=== PATIENT | female | born 1990 | race Caucasian/White ===

== ENCOUNTER 2017-06-17 22:48 | Inpatient (IN) | payer BC, OTHER ==
[~2017-06-17] VITALS: Ht 177.8 cm; Wt 72.6 kg
[2017-06-18] MEDS ORDERED: MAG HYDROX/AL HYDROX/SIMETH 30 ML LIQUID UDC PO PRN (00:15)
[2017-06-18] MEDS ORDERED: ONDANSETRON 4 MG/2 ML VIAL IM PRN (00:15)
[2017-06-18] MEDS ORDERED: CLONIDINE HCL 0.1 MG TABLET PO PRN (00:15)
[2017-06-18] MEDS ORDERED: DICYCLOMINE HCL 20 MG TABLET PO PRN (00:15)
[2017-06-18] MEDS ORDERED: IBUPROFEN 400 MG TABLET PO PRN (00:15)
[2017-06-18] MEDS ORDERED: LORAZEPAM 1 MG TABLET PO PRN ×2 (00:15)
[2017-06-18] MEDS ORDERED: LOPERAMIDE HCL 2 MG CAPSULE PO PRN ×2 (00:15)
[2017-06-18] MEDS ORDERED: ACETAMINOPHEN 325 MG TABLET PO PRN (00:15)
[2017-06-18] MEDS ORDERED: MIRALAX 17 GM POWD.PACK PO PRN (00:15)
[2017-06-18] MEDS ORDERED: LORAZEPAM 2 MG/1 ML VIAL IM PRN (00:15)
[2017-06-18] MEDS ORDERED: MAGNESIUM HYDROXIDE 30 ML LIQUID UDC PO PRN (00:15)
[2017-06-18] MEDS ORDERED: THIAMINE HCL 200 MG/2 ML VIAL IM ONE (00:15)
--- NOTE | 2017-06-18 00:15 | NUR ---
Intake Assessment Assessment done at intake office. Patient is alert & oriented x4. Pt is ambulatory with a steady gait. Speech is clear and audible. No s/s of distress noted. Vitals noted B/P 130/89, AL 96, RR 18, Temp 96.5, O2Sat 96%. Pt is here for Alcohol dependence. No seizure history noted. Pt reported allergies to Penicillins. Pt did not bring any home medications. Explained to pt unit protocols. Pt verbalized understanding.
[2017-06-18 00:20] VITALS: BP 130/89
--- NOTE | 2017-06-18 00:26 | NUR ---
ADMISSION NOTE: Patient is a 26 y.o female admitted at [facility] at approximately 0026 am of 06/18/17 for medically supervised withdrawal from ETOH. Body search done and skin check performed, no contraband found. Bruise noted on her left thigh and left leg. Per pt, she bumped into a coffee table at work. Pt is 5'10" tall and weighs 160 lbs in a standing scale. Pt is cooperative during assessment. Patient is oriented to floor unit and room. Patient follows a regular diet at home with allergies to Penicillin. Pt wishes to be full Code. Patient is alert & oriented x4, ambulatory with a steady gait. Patient does not look intoxicated. Speech is clear and audible. Patient is slightly anxious but cooperative during interview. No shortness of breath noted. Respiration even & unlabored. Abdomen soft & non-distended. Bowel sounds active in all four quadrants. Slight nausea noted. No pain/discomfort noted at this time. Bilateral hand tremors noted. Vitals upon admission: B/P 130/89, MA 96, Temp 96.4, RR 16, O2Sat 96%. Patient reported surgical hx of appendectomy in 2013 . Pt denies any suicide attempt. Pt currently denies SI/HI. Pt was able to provide urine sample for drug screen upon admission and is voiding clear yellow urine with no problems. Substance use: 1. ETOH- Pt has been drinking occasionally since 16 years and was not dependent until 6 months ago. Pt reports that she drinks 1/2 pint of Vodka daily for the past 3 months. Pt Last drink was 1/4 pint of vodka @ 3pm prior to admission. Patient reports that this is her first time in treatment. Patient denies being hospitalized in the last 30 days. Patient reports her longest period of sobriety was for 2 weeks, 3 months ago. Patient reports symptoms when he does not use as tremors, headache, visual hallucinations & nausea. Patient smokes a vaporizer and occasionally smokes a cigarettes. Patient refused flu & pneumonia vaccines, educated patient risk & benefits but still refused. Patient does not have a PCP. Urine drug screen came back negative. Alcohol level is 0.39. Fall & Seizure precautions are in place. All needs attended & met. Safety precautions are in place. Bed locked in lowest position. Both side rails padded & up. Call light within pt's reach. Informed Dr. Yeager of pt's admission. Awaiting for orders. Will continue to monitor patient.
[2017-06-18 01:31] LABS: *URINE HCG, QUAL NEGATIVE (NEGATIVE)
[2017-06-18 01:35] LABS: BASOPHILS # (AUTO) 0.1 K/uL (0.0-8.0); BASOPHILS % (AUTO) 3.3 % (0.0-2.0); EOSINOPHILS % (AUTO) 0.6 % (0.0-7.0); HEMATOCRIT 42.9 % (31.2-41.9); HEMOGLOBIN 14.9 g/dL (10.9-14.3); LYMPHOCYTES % (AUTO) 27.1 % (20.5-51.5); MEAN CORPUSCULAR HEMOGLOBIN 36.7 uug (24.7-32.8); MEAN CORPUSCULAR HGB CONC 35 g/dL (32.3-35.6); MEAN CORPUSCULAR VOLUME 105.5 fL (75.5-95.3); MONOCYTES # (AUTO) 0.5 K/uL (2.0-10.0); MONOCYTES % (AUTO) 14.1 % (0.0-11.0); NEUTROPHILS % (AUTO) 54.9 % (38.5-71.5); PLATELET COUNT (AUTO) 197 K/uL (179-408); RED BLOOD CELL COUNT(AUTO) 4.07 MIL/uL (3.63-4.92); WHITE BLOOD COUNT (AUTO) 3.6 K/uL (3.8-11.8)
[2017-06-18 01:45] LABS: *AMPHETAMINE, URINE NEGATIVE (NEGATIVE); *BARBITURATE, URINE NEGATIVE (NEGATIVE); *CANNABINOID, URINE NEGATIVE (NEGATIVE); *COCCAINE, URINE NEGATIVE (NEGATIVE); *OPIATE, URINE NEGATIVE (NEGATIVE); *PHENCYCLIDINE SCREEN,URINE NEGATIVE (NEGATIVE)
[2017-06-18] MEDS ORDERED: LORAZEPAM 1 MG TABLET ONE (01:45)
[2017-06-18] MEDS ORDERED: THIAMINE HCL 200 MG/2 ML VIAL ONE (01:46)
--- NOTE | 2017-06-18 01:51 | NUR ---
PRN Ativan Patient complained of nausea. Pt noted with bilateral hand tremors, slight sweating & anxiety. Vitals WNL. CIWA 5 at this time. PRN Ativan 1mg PO administered as ordered. Will monitor for effectiveness of medication.
[2017-06-18 01:56] LABS: BILIRUBIN,TOTAL 0.6 mg/dL (0.2-1.0); CREATININE 0.7 mg/dL (0.6-1.3); MAGNESIUM 1.8 mg/dL (1.8-2.4); POTASSIUM 3.4 mmol/L (3.5-5.1); TOTAL PROTEIN, SERUM 8.2 g/dL (6.4-8.2)
--- NOTE | 2017-06-18 02:51 | NUR ---
PRN Reassessment Patient asleep in bed and appears comfortable. No s/s of distress noted at this time. Unable to assess CIWA. WIll continue to monitor patient.
[2017-06-18 04:00] VITALS: BP 108/64
--- NOTE | 2017-06-18 07:08 | NUR ---
End of Shift Note: Patient is a 26 y.o female admitted today at approximately 0026am of 06/18/17 for medically supervised withdrawal from Alcohol. Patient hast Surgical Hx of Appendectomy in 2013 & MHx of Long QT. No seizure history noted. Patient is on a regular diet with no known food and drug allergies. Full Code status noted. Patient is alert & oriented x4. Patient is ambulatory with a steady gait. Patient remained stable and vitals remains WNL. Pt has no taper yet. Pt last Ciwa is 5. Pt presented with nausea, tremors & anxiety during my shift. Pt received PRN Ativan 1mg PO as ordered during my shift and was effective. Pt is asleep at this time with no s/s of distress noted. Pt slept for a total of 2 hours. Fluid intake: 1255 ml. Voided 1z with no bowel movement. All needs attended & met. Safety measures in place. Will continue to monitor patient.
--- NOTE | 2017-06-18 07:30 | NUR ---
START OF SHIFT Pt 26 y/o female admitted for etoh dependence. Pt received in room on bed with eyes closed resting, but easily arousable to name. Pt alert and oriented to name, place, and time. Perrla. Skin warm and slightly moist to touch. Respirations even and unlabored. Pt with bilateral hand tremors noted. Pt states feels anxious this morning and with slight nausea noted. It was reported that pt slept for 2 hours last night. Bed on lowest position with side rails x2 up for safety. Call light within reach. No distress noted at this time.
[2017-06-18 08:00] VITALS: BP 148/72
[2017-06-18] MEDS: THIAMINE HCL 100 MG TABLET PO SCH (08:28)
[2017-06-18] MEDS: ONDANSETRON ODT 4 MG TAB.RAPDIS SL PRN ×2 (08:28→20:25)
[2017-06-18] MEDS: MULTIVITAMINS,THERAPEUTIC TABLET PO SCH (08:28)
[2017-06-18] MEDS: LORAZEPAM 1 MG TABLET PO SCH ×4 (08:29→20:24)
[2017-06-18] MEDS: FOLIC ACID 1 MG TABLET PO SCH (08:29)
--- NOTE | 2017-06-18 08:31 | NUR ---
PRN Pt with c/o nausea. Zofran odt prn per MD order given and tolerated well.
--- NOTE | 2017-06-18 09:31 | NUR ---
PRN EVAL Pt states does not feels nauseated at this time.
[2017-06-18] MEDS ORDERED: POTASSIUM CHLORIDE 10 MEQ CAPSULE.SA PO ONE (10:00)
[2017-06-18 12:00] VITALS: BP 131/85
--- NOTE | 2017-06-18 12:42 | NUR ---
Therapist prompted client to come to group today, client agreed to attend.
[2017-06-18] MEDS ORDERED: NICOTINE POLACRILEX 4 MG GUM-PK OF TEN BC PRN (15:00)
[2017-06-18] MEDS ORDERED: NICOTINE 14 MG/24HR PATCH TD PRN (15:00)
--- NOTE | 2017-06-18 15:29 | NUR ---
PRN Pt states vomitted x3 water. Zofran im prn per MD order given and tolerated well.
[2017-06-18 16:00] VITALS: BP 152/93
--- NOTE | 2017-06-18 16:29 | NUR ---
PRN EVAL Pt states zofran im was effective.
[2017-06-18] MEDS: hydrALAZINE HCL 50 MG TABLET PO PRN (17:30)
--- NOTE | 2017-06-18 17:31 | NUR ---
PRN Pt with qm=740/93. Hydralazine po prn per MD order given and tolerated well.
--- NOTE | 2017-06-18 18:31 | NUR ---
PRN EVAL pt with bp= 130/68
--- NOTE | 2017-06-18 18:41 | NUR ---
END OF SHIFT Pt 26 y/o female admitted for etoh dependence. Pt alert and oriented to name, place, and time. Perrla. Skin warm and moist to touch. Respirations even and unlabored. Bilateral hand tremors noted. Pt with periods of anxiety this morning. Pt also with vomit episode x3 this afternoon. Pt observed mostly isolative to room throughout the day. Pt did attend group activity today. Pt was seen by MD today. Pt medication compliant and tolerated well. No ASE noted. Bed on lowest position with side rails x2 up for safety. Call light within reach. No distress noted at this time.
--- NOTE | 2017-06-18 19:15 | NUR ---
Start of Shift Note: Patient is a 26 y.o female admitted today 06/18/17 for medically supervised withdrawal from Alcohol. Patient has PMHx of Long QT Syndrome, Anxiety, Depression, Migraine & Appendectomy. No seizure history noted. Patient is on a regular diet with no known food and drug allergies. Full Code status noted. Patient started on a 5-day Ativan taper and tolerating well. Last CIWA is 4. Pt received PRN Zofran PO & Zofran IM during day shift and was effective. Patient is alert & oriented x4. Patient is ambulatory with a steady gait. Patient remained stable and vitals remains WNL. Pt last Ciwa is 4. Pt presented with nausea, tremors, sweating & anxiety during my shift. Pt complained of mild headache. Hand tremors noted. Patient denies any hallucinations at this time. Safety measures in place. Bed locked in lowest position. Both side rails up. Call light within pt's reach. Will continue to monitor patient.
[2017-06-18 20:00] VITALS: BP 140/92
[2017-06-18] MEDS: PROPRANOLOL HCL 20 MG TABLET PO SCH (20:24)
--- NOTE | 2017-06-18 20:25 | NUR ---
PRN Motrin & Zofran Patient complains of moderate headache and nausea. No episode of vomiting noted. PRN Motrin PO and Zofran SL administered as ordered. Will continue to monitor patient.
--- NOTE | 2017-06-18 21:25 | NUR ---
PRN Reassessment Pt verbalized improved nausea and relief from headache. PRN medication effective. Will continue to monitor patient.
[2017-06-18] MEDS: diphenhydrAMINE 50 MG CAPSULE PO PRN (23:56)
--- NOTE | 2017-06-18 23:56 | NUR ---
PRN Benadryl Patient complains of unable to fall asleep. PRN Benadryl administered as ordered. Will continue to monitor patient.
[2017-06-19] VITALS: BP 130/91
[2017-06-19 04:00] VITALS: BP 126/88
[2017-06-19 06:56] LABS: BASOPHILS # (AUTO) 0.1 K/uL (0.0-8.0); BASOPHILS % (AUTO) 2.5 % (0.0-2.0); EOSINOPHILS # (AUTO) 0.1 K/uL (0.0-0.7); EOSINOPHILS % (AUTO) 2.5 % (0.0-7.0); HEMATOCRIT 41.9 % (31.2-41.9); HEMOGLOBIN 14.3 g/dL (10.9-14.3); LYMPHOCYTES # (AUTO) 0.9 K/uL (20.0-40.0); LYMPHOCYTES % (AUTO) 27.3 % (20.5-51.5); MEAN CORPUSCULAR HEMOGLOBIN 36.4 uug (24.7-32.8); MEAN CORPUSCULAR HGB CONC 34 g/dL (32.3-35.6); MEAN CORPUSCULAR VOLUME 106.6 fL (75.5-95.3); MONOCYTES # (AUTO) 0.7 K/uL (2.0-10.0); MONOCYTES % (AUTO) 22.9 % (0.0-11.0); NEUTROPHILS # (AUTO) 1.4 K/uL (1.8-8.9); NEUTROPHILS % (AUTO) 44.8 % (38.5-71.5); PLATELET COUNT (AUTO) 159 K/uL (179-408); RED BLOOD CELL COUNT(AUTO) 3.93 MIL/uL (3.63-4.92); WHITE BLOOD COUNT (AUTO) 3.1 K/uL (3.8-11.8)
[2017-06-19 07:06] LABS: CREATININE 0.7 mg/dL (0.6-1.3); MAGNESIUM 1.9 mg/dL (1.8-2.4); PHOSPHOROUS 4.1 mg/dL (2.5-4.9); POTASSIUM 4.5 mmol/L (3.5-5.1)
--- NOTE | 2017-06-19 07:11 | NUR ---
End of Shift Note: Patient is a 26 y.o female admitted today 06/18/17 for medically supervised withdrawal from Alcohol. Patient had an uneventful night. Patient continues on her Ativan taper and tolerating well. Last COWS is 4. Pt reported that taper medication is effective in controlling her withdrawal symptoms. Pt received PRN Benadryl for sleep, Motrin for pain and Zofran for nausea during my shift and was effective. Patient remained stable and vitals WNL. Pt remained compliant with medications and treatment. Patient slept for a total of 5 hours. Fluid intake: 500ml. Will continue to encourage pt to increase fluid intake. Voided 2x and 1x bowel movement noted. Will continue to monitor for BM. All needs attended & met. Safety measures in place. Will endorse pt to day shift nurse.
--- NOTE | 2017-06-19 07:30 | NUR ---
START OF SHIFT Pt 26 y/o female admitted for etoh dependence. Pt received in room on bed with eyes closed resting, but easily arousable to name. Pt alert and oriented to name, place, and time. Perrla. Skin warm and slightly moist to touch. Respirations even and unlabored. Pt with bilateral hand tremors noted. It was reported that pt slept for 3 hours last night. Bed on lowest position with side rails x2 up for safety. Call light within reach. No distress noted at this time.
[2017-06-19 08:00] VITALS: BP 122/93
[2017-06-19] MEDS ORDERED: TUBERCULIN,PURIF.PROT.DERIV. 5 TU/0.1 ML TEST ID ONE (09:00)
[2017-06-19] MEDS: THIAMINE HCL 100 MG TABLET PO SCH (09:05)
[2017-06-19] MEDS: MULTIVITAMINS,THERAPEUTIC TABLET PO SCH (09:05)
[2017-06-19] MEDS: PROPRANOLOL HCL 20 MG TABLET PO SCH ×2 (09:05→20:17)
[2017-06-19] MEDS: FOLIC ACID 1 MG TABLET PO SCH (09:05)
[2017-06-19] MEDS: LORAZEPAM 1 MG TABLET PO SCH ×3 (09:05→20:18)
[2017-06-19 09:21] LABS: EOSINOPHILS % (MANUAL) 4 % (0-8); LYMPHOCYTES % (MANUAL) 35 % (20-40); MONOCYTES % (MANUAL) 14 % (2-10); NEUTROPHILS % (MANUAL) 47 % (42-75)
--- NOTE | 2017-06-19 09:30 | NUR ---
CARDIO CONSULT Dr. High on unit to evaluate pt re: cardio consult r/t prolonged QT, with new orders for echocardiogram. Addendum: 06/19/17 at 1741 by VIRI COLLINS RN additional Dr. High also with recommendation to DC antiemetics and immodium because it could cause prolonged QT.
[2017-06-19] MEDS: hydrALAZINE HCL 50 MG TABLET PO PRN (12:17)
--- NOTE | 2017-06-19 12:19 | NUR ---
PRN Pt with jl=417/104. Hydralazine po prn per MD order given and tolerated well.
[2017-06-19 12:33] VITALS: BP 142/104
--- NOTE | 2017-06-19 13:19 | NUR ---
PRN EVAL Pt mk=876/88
[2017-06-19 14:07] LABS: HEPATITIS B SURFACE AG Negative (Negative)
[2017-06-19 16:00] VITALS: BP 124/81
--- NOTE | 2017-06-19 17:35 | NUR ---
PRN Pt states did not have a bm. Miralax oral mix solution prn per MD order given and tolerated well.
--- NOTE | 2017-06-19 18:36 | NUR ---
END OF SHIFT Pt 26 y/o female admitted for etoh dependence. Pt alert and oriented to name, place, and time. Perrla. Skin warm and moist to touch. Respirations even and unlabored. Bilateral hand tremors noted. Pt with periods of anxiety this morning. Pt observed mostly isolative to room throughout the day. Pt did attend group activity today. Pt was seen by MD today. Pt also seen by bridge club manager today. Pt medication compliant and tolerated well. No ASE noted. Bed on lowest position with side rails x2 up for safety. Call light within reach. No distress noted at this time.
--- NOTE | 2017-06-19 19:15 | NUR ---
Start of Shift Note: Patient is a 26 y.o female admitted on 06/18/17 for medically supervised withdrawal from Alcohol. Patient has PMHx of Long QT Syndrome, Anxiety, Depression, Migraine & Appendectomy. No seizure history noted. Patient is on a regular diet with no known food and drug allergies. Full Code status noted. Patient continues on a 5-day Ativan taper and tolerating well. Last CIWA is 4. Pt received PRN Hydralazine and Miralax during day shift and it was effective. Patient is alert & oriented x4. Patient is ambulatory with a steady gait. Patient remained stable and vitals remains WNL. Pt last Ciwa is 4. Pt presented with nausea, tremors, & anxiety during my shift. No complaints of pain/discomfort noted. Hand tremors noted. Patient denies any hallucinations at this time. Safety measures in place. Bed locked in lowest position. Both side rails up. Call light within pt's reach. Will continue to monitor patient.
[2017-06-19 20:00] VITALS: BP 124/82
[2017-06-19] MEDS: diphenhydrAMINE 50 MG CAPSULE PO PRN (20:18)
--- NOTE | 2017-06-19 20:18 | NUR ---
PRN Benadryl Patient complains that she is unable to fall asleep. Pt requesting for medication to help her sleep. PRN Benadryl administered as ordered. Will continue to monitor patient.
--- NOTE | 2017-06-19 22:00 | NUR ---
PRN Reassessment Patient asleep in bed and appears comfortable. No s/s of distress noted. PRN medication effective. Will continue to monitor patient.
[2017-06-20] VITALS: BP 127/85
--- NOTE | 2017-06-20 07:05 | NUR ---
End of Shift Note: Patient is a 26 y.o female admitted on 06/18/17 for medically supervised withdrawal from Alcohol. Patient had an uneventful night. Patient continues on her Ativan taper and tolerating well. Last Ciwa is 4. Pt reported that taper medication is effective in controlling her withdrawal symptoms. Pt received PRN Benadryl for sleep and was effective. Patient remained stable and vitals WNL. Pt remained compliant with medications and treatment. Patient slept for a total of 6 hours. Fluid intake: 1000ml. Will continue to encourage pt to increase fluid intake. Voided 2x and 1x bowel movement noted. All needs attended & met. Safety measures in place. Will endorse pt to day shift nurse.
--- NOTE | 2017-06-20 07:55 | NUR ---
START OF SHIFT NOTE Received report from night nurse, 26 year old female admitted for ETOH dependence. Patient has PMH of Long QT Syndrome, Anxiety, Depression, Migraine & Appendectomy. Per endorsement pt received PRN Benadryl, last CIWA was 4, slept for 6 hours. Patient presented with anxiety, agitation, chills, sweats, Tremors. Educated patient on the current plan of care for the day and medication regimen. Safety measures in place. call light kept with in reach, Will continue to monitor.
[2017-06-20 08:00] VITALS: BP 109/80
[2017-06-20] MEDS: FOLIC ACID 1 MG TABLET PO SCH (08:35)
[2017-06-20] MEDS: MULTIVITAMINS,THERAPEUTIC TABLET PO SCH (08:35)
[2017-06-20] MEDS: THIAMINE HCL 100 MG TABLET PO SCH (08:35)
[2017-06-20] MEDS: LORAZEPAM 1 MG TABLET PO SCH ×4 (08:35→21:22)
[2017-06-20] MEDS: PROPRANOLOL HCL 20 MG TABLET PO SCH ×2 (08:35→21:23)
[2017-06-20 12:00] VITALS: BP 128/91
--- NOTE | 2017-06-20 13:55 | NUR ---
Therapist prompted client about group times. Client stated she would attend all groups.
[2017-06-20 16:00] VITALS: BP 134/97
--- NOTE | 2017-06-20 19:07 | NUR ---
END OF SHIFT NOTE Patient cont with Ativan taper tolerating well. During shift patient did not receive any PRN medications. Vital signs remained WNL. Encourage Po fluids as tolerated. Last CIWA score was 4 @ 1600. Skin intact warm and dry to touch. Patient attended groups and activities. All needs attended, Safety measures in place. Patient endorsed to night nurse in stable condition.
[2017-06-20 20:00] VITALS: BP 142/94
--- NOTE | 2017-06-20 20:00 | NUR ---
Start of Shift Notes Received a 26 y/o female admitted on 06/18/2017 for etoh dependence. Px alert and oriented to name, place, and time. Perrla. Px is allergic to PCN, on regular diet and Full Code. During the rounds at 2000, px reported anxiety is on moderate. Respirations even and unlabored. Bed on lowest position with side rails x2 up for safety. Call light within reach. We'll continue to monitor.
[2017-06-21] VITALS: BP 109/60
--- NOTE | 2017-06-21 | NUR ---
CIWA deferred CIWA deferred due to the px is asleep, to assess if the px is awake per doctor's order. We'll continue to monitor.
[2017-06-21 04:00] VITALS: BP 111/63
--- NOTE | 2017-06-21 04:00 | NUR ---
CIWA deferred CIWA deferred due to the px is asleep, to assess if the px is awake per doctor's order. We'll continue to monitor.
--- NOTE | 2017-06-21 07:02 | NUR ---
End of Shift Notes 26 y/o female admitted on 06/18/2017 for etoh dependence. Px alert and oriented to name, place, and time. Perrla. Px is allergic to PCN, on regular diet and Full Code. During the shift, px reported anxiety is on moderate. Oral intake of 1 L, voided 2x, no BM. Slept 7 hours. Respirations even and unlabored. Bed on lowest position with side rails x2 up for safety. Call light within reach. We'll continue to monitor.
--- NOTE | 2017-06-21 07:43 | NUR ---
START OF SHIFT NOTE Received report from night nurse, 26 year old female admitted for ETOH dependence. Patient has PMH of Long QT Syndrome, Anxiety, Depression, Migraine & Appendectomy. Per endorsement pt was not given any PRN'S, last CIWA was 5, slept for 7 hours. Received pt alert awake oriented x4. Educated patient on the current plan of care for the day and medication regimen. Safety measures in place. call light kept with in reach, Will continue to monitor.
[2017-06-21 08:00] VITALS: BP 107/75
[2017-06-21] MEDS: MULTIVITAMINS,THERAPEUTIC TABLET PO SCH (08:29)
[2017-06-21] MEDS: THIAMINE HCL 100 MG TABLET PO SCH (08:29)
[2017-06-21] MEDS: FOLIC ACID 1 MG TABLET PO SCH (08:29)
[2017-06-21] MEDS: LORAZEPAM 1 MG TABLET PO SCH ×3 (08:30→21:07)
[2017-06-21] MEDS: PROPRANOLOL HCL 20 MG TABLET PO SCH ×2 (08:30→21:06)
[2017-06-21 12:00] VITALS: BP 139/88
--- NOTE | 2017-06-21 14:42 | NUR ---
Therapist prompted client to come into group and share with others.
[2017-06-21 16:00] VITALS: BP 101/65
--- NOTE | 2017-06-21 19:08 | NUR ---
END OF SHIFT NOTE Patient cont with Ativan taper tolerating well. During shift patient did not receive any PRN medications. Vital signs remained WNL. Encourage Po fluids as tolerated. Last CIWA score was 3 @ 1600. Skin intact warm and dry to touch. Patient attended groups and activities. All needs attended, Safety measures in place. Patient endorsed to night nurse in stable condition.
[2017-06-21 20:00] VITALS: BP 142/102
--- NOTE | 2017-06-21 20:00 | NUR ---
Start of Shift Notes Received a 26 y/o female admitted on 06/18/2017 for etoh dependence. Px alert and oriented to name, place, and time. Perrla. Px is allergic to PCN, on regular diet and Full Code. During the rounds at 2000, px reported anxiety is mild. Respirations are even and unlabored. Bed on lowest position with side rails x2 up for safety. Call light within reach. We'll continue to monitor.
[2017-06-21] MEDS: diphenhydrAMINE 50 MG CAPSULE PO PRN (21:07)
--- NOTE | 2017-06-21 21:07 | NUR ---
PRN Benadryl Px requested pill to help her sleep tonight. Benadryl 50 mg/cap, 1 cap given PO as PRN meds. We'll continue to monitor.
[2017-06-22] VITALS: BP 122/82
--- NOTE | 2017-06-22 | NUR ---
CIWA deferred CIWA deferred due to the px is asleep, to assess if the px is awake per doctor's order. We'll continue to monitor.
[2017-06-22 04:00] VITALS: BP 125/79
--- NOTE | 2017-06-22 04:00 | NUR ---
CIWA deferred CIWA deferred due to the px is asleep, to assess if the px is awake per doctor's order. We'll continue to monitor.
--- NOTE | 2017-06-22 06:59 | NUR ---
End of Shift Notes 26 y/o female admitted on 06/18/2017 for etoh dependence. Px alert and oriented to name, place, and time. Perrla. Px is allergic to PCN, on regular diet and Full Code. During the shift, px reported anxiety is on mild. Px requested pill to help her sleep tonight. Benadryl 50 mg/cap, 1 cap given PO as PRN meds. Oral intake of 1,500 ml, voided 2x, no BM. Slept for 8 hours. Respirations are even and unlabored. Bed on lowest position with side rails x2 up for safety. Call light within reach. We'll continue to monitor.
--- NOTE | 2017-06-22 07:56 | NUR ---
START OF SHIFT NOTE Received report from night nurse, 26 year old female admitted for ETOH dependence. Patient has PMH of Long QT Syndrome, Anxiety, Depression, Migraine & Appendectomy. Per endorsement pt received PRN Benadryl, last CIWA was 2, slept for 8 hours. Received pt alert awake oriented x4. Educated patient on the current plan of care for the day and medication regimen. Safety measures in place. call light kept with in reach, Will continue to monitor.
[2017-06-22 08:00] VITALS: BP 118/75
[2017-06-22] MEDS: THIAMINE HCL 100 MG TABLET PO SCH (08:16)
[2017-06-22] MEDS: PROPRANOLOL HCL 20 MG TABLET PO SCH ×2 (08:16→20:55)
[2017-06-22] MEDS: LORAZEPAM 1 MG TABLET PO SCH ×2 (08:16→20:55)
[2017-06-22] MEDS: MULTIVITAMINS,THERAPEUTIC TABLET PO SCH (08:16)
[2017-06-22] MEDS: FOLIC ACID 1 MG TABLET PO SCH (08:16)
[2017-06-22 12:00] VITALS: BP 134/86
[2017-06-22 16:00] VITALS: BP 138/88
--- NOTE | 2017-06-22 19:11 | NUR ---
END OF SHIFT NOTE Patient cont with Ativan taper tolerating well. During shift patient did not receive any PRN medications. Vital signs remained WNL. Encourage Po fluids as tolerated. Last CIWA score was 2 @ 1600. Skin intact warm and dry to touch. Patient attended groups and activities. All needs attended, Safety measures in place. Patient endorsed to night nurse in stable condition.
--- NOTE | 2017-06-22 19:45 | NUR ---
310 Start of Shift Notes Received a 26 y/o female admitted on 06/18/2017 for etoh dependence. Px alert and oriented to name, place, and time. Perrla. Px is allergic to PCN, on regular diet and Full Code. During the rounds at 1945, px reported anxiety is mild. Respirations are even and unlabored. Bed on lowest position with side rails x2 up for safety. Call light within reach. We'll continue to monitor.
[2017-06-22 20:00] VITALS: BP 132/92
[2017-06-23] VITALS: BP 112/74
[2017-06-23 04:00] VITALS: BP 119/78
--- NOTE | 2017-06-23 04:00 | NUR ---
CIWA deferred CIWA deferred at 0000 and 0400 due to the px is asleep, to assess if the px is awake per doctor's order. We'll continue to monitor.
--- NOTE | 2017-06-23 07:18 | NUR ---
End of Shift Notes 26 y/o female admitted on 06/18/2017 for etoh dependence. Px alert and oriented to name, place, and time. Perrla. Px is allergic to PCN, on regular diet and Full Code. During the shift, px reported anxiety is mild. Respirations are even and unlabored. Oral intake of 1,600 ml, voided 4x, BM 1x. Slept for 7 hours. Bed on lowest position with side rails x2 up for safety. Call light within reach. We'll continue to monitor.
--- NOTE | 2017-06-23 07:55 | NUR ---
BEGINNING OF SHIFT Patient endorsement report received from shift production supervisor nurse, all pertinent information discussed. Patient is a 26 year old female with admitting Dx: ETOH dependence. Patient Continue on 5 day Ativan taper as ordered, well tolerated, no ASE noted. Patient received awake, alert and oriented x4. per shift production supervisor patient slept for 7 hours. Patient received no PRNs. Patient with last ciwa score of: 2. Patient was educated regarding plan of care for the day and medication regimen. safety measures in place. call light kept with in reach. will continue to monitor.
[2017-06-23 09:00] VITALS: BP 111/68
[2017-06-23] MEDS: PROPRANOLOL HCL 20 MG TABLET PO SCH ×2 (09:00→21:44)
[2017-06-23] MEDS ORDERED: LORAZEPAM 1 MG TABLET PO SCH (09:00)
[2017-06-23] MEDS: FOLIC ACID 1 MG TABLET PO SCH (09:22)
[2017-06-23] MEDS: MULTIVITAMINS,THERAPEUTIC TABLET PO SCH (09:22)
[2017-06-23] MEDS: THIAMINE HCL 100 MG TABLET PO SCH (09:22)
[2017-06-23 13:00] VITALS: BP 135/81
--- NOTE | 2017-06-23 14:53 | NUR ---
Therapist prompted client about group times. Client stated she would attend all groups today.
[2017-06-23 17:39] VITALS: BP 134/89
--- NOTE | 2017-06-23 18:47 | NUR ---
END OF SHIFT Patient alert and oriented x4, vital signs were stable during shift. Patient compliant with therapeutic plan of care. Patient with admitting Dx: opiate dependence, continues with ongoing Subutex taper as ordered, well tolerated, no ASE noted. Patient 0900 assessment patient presented with: heart rate of 92, c/o chills, difficulty sitting still, dilated pupils, mild bone and joint aches, nasal stuffiness, tremors that can be felt but not seen, stomach cramps, irritable, and anxiety with cow score of: 10; 1300 assessment patient presented with: heart rate of 92, c/o chills, difficulty sitting still, dilated pupils, mild bone and joint aches, nasal stuffiness, tremors that can be felt but not seen, stomach cramps, irritable, and mild anxiety with cow score of: 9. 1700 assessment patient presented with: heart rate of 92, c/o chills, difficulty sitting still, dilated pupils, mild bone and joint aches, nasal stuffiness, tremors that can be felt but not seen, stomach cramps, irritable, and mild anxiety with cow score of: 9. Patient encouraged adequate PO fluid intake as tolerated. Patient encouraged to attend group therapies/sessions to learn new coping skills to prevent relapse. Denies any SI/HI. Patient received no PRN medications during shift. Safety measures in place. Call light kept with in reach. Patient endorsed to police shift commander nurse, all pertinent information discussed.
[2017-06-23] MEDS ORDERED: PROP20TA22 PO (19:38)
[2017-06-23] MEDS ORDERED: DIPH50CA37 PO (19:38)
[2017-06-23 20:00] VITALS: BP 128/80
--- NOTE | 2017-06-23 20:00 | NUR ---
START OF SHIFT NOTE RECEIVED REPORT FROM DAY SHIFT NURSE. PATIENT IS A 26 YEAR OLD FEMALE ADMITTED FOR ETOH DEPENDENCE. PATIENT COMPLETED 5 DAY ATIVAN TAPER, TOLERATED WELL AND NO ADVERSE REACTION. PATIENT IS MEDICALLY CLEARED TO BE DISCHARGE TOMORROW. PATIENT IS ALLERGIC TO PENICILLIN. ECHO DONE FOR LONG QT SYNDROME. VS STABLE. LAST CIWA 2. RECEIVED PATIENT IN HER ROOM, ALERT AND ORIENTED X 4. RESPIRATION EVEN AND UNLABORED. DENIES ANY PAIN OR DISCOMFORT. NO N/V. ON FALL/SEIZURE PRECAUTION. SAFETY MEASURES IN PLACE. CALL LIGHT IN REACH. WILL CONTINUE TO MONITOR.
[2017-06-23] MEDS: diphenhydrAMINE 50 MG CAPSULE PO PRN (21:44)
--- NOTE | 2017-06-23 21:44 | NUR ---
PRN BENADRYL ADMINISTRATION PATIENT REQUESTS FOR SLEEP AID. WILL MONITOR FOR EFFECTIVENESS
--- NOTE | 2017-06-23 22:30 | NUR ---
THOR BARRERA RE-ASSESSMENT PATIENT ASLEEP AT THIS TIME. RESPIRATION EVEN AND UNLABORED. SAFETY MEASURES IN PLACE. CALL LIGHT IN REACH. WILL CONTINUE TO MONITOR.
--- NOTE | 2017-06-24 | NUR ---
CIWA DEFERRED PATIENT SLEEPING. RESPIRATION EVEN AND UNLABORED. CIWA DEFERRED. REFUSED VS. SAFETY MEASURES IN PLACE. CALL LIGHT IN REACH. WILL CONTINUE TO MONITOR.
--- NOTE | 2017-06-24 04:00 | NUR ---
CIWA DEFERRED PATIENT SLEEPING. RESPIRATION EVEN AND UNLABORED. CIWA DEFERRED. REFUSED VS. SAFETY MEASURES IN PLACE. CALL LIGHT IN REACH. WILL CONTINUE TO MONITOR.
--- NOTE | 2017-06-24 07:15 | NUR ---
END OF SHIFT NOTE PATIENT IS A 26 YEAR OLD FEMALE ADMITTED FOR ETOH DEPENDENCE. PATIENT COMPLETED 5 DAY ATIVAN TAPER, TOLERATED WELL AND NO ADVERSE REACTION. PATIENT IS MEDICALLY CLEARED TO BE DISCHARGE TODAY. PATIENT IS ALLERGIC TO PENICILLIN. ECHO DONE FOR LONG QT SYNDROME. PRN BENADRYL GIVEN FOR SLEEP. PATIENT COMPLIANT WITH MEDICATION AND TREATMENT PLAN. ON FALL/SEIZURE PRECAUTION. SAFETY MEASURES IN PLACE. CALL LIGHT IN REACH. WILL CONTINUE TO MONITOR. LAST CIWA 1. SLEPT 7 HOURS. FLUID INTAKE 1,546 ML. VOIDED X 3. BM X 1. 316
--- NOTE | 2017-06-24 07:32 | NUR ---
BEGINNING OF SHIFT Patient endorsement report received from shiftman nurse, all pertinent information discussed. Patient is a 26 year old female with admitting Dx: ETOH dependence. Patient completed 5 day Ativan taper as ordered, well tolerated, no ASE noted. patient is scheduled to be discharged this morning. Patient received awake, alert and oriented x4. per shiftman patient slept for 7 hours. Patient received PRN: Benadryl, per shiftman medication effective. Patient with last ciwa score of: 1. Patient was educated regarding plan of care for the day and medication regimen. safety measures in place. call light kept with in reach. will continue to monitor.
[2017-06-24 08:15] VITALS: BP 115/70
[2017-06-24] MEDS: THIAMINE HCL 100 MG TABLET PO SCH (08:38)
[2017-06-24] MEDS: MULTIVITAMINS,THERAPEUTIC TABLET PO SCH (08:38)
[2017-06-24] MEDS: FOLIC ACID 1 MG TABLET PO SCH (08:38)
[2017-06-24 08:39] VITALS: BP 115/70
[2017-06-24] MEDS: PROPRANOLOL HCL 20 MG TABLET PO SCH (08:39)
--- NOTE | 2017-06-24 09:20 | NUR ---
DISCHARGE Patient discharged off the unit at 0920, prior to discharge patient was provided with education and teaching regarding all discharge instructions with good verbal understanding. patients vital signs WNl. Patient with no s/sx of withdrawal, last ciwa score of: 0. Patient noted self motivated towards sobriety. Patients discharge instructions were placed in personal duffel bag. Patient not in any apparent acute distress, off the unit at 0920.
== END 2017-06-24 09:20 | disposition home or self-care (01) | DRG 895 ==
LOC: SRC 06-18 00:05
PROVIDERS: ADMIT Internal Medicine; ATTEND Internal Medicine
PROC: HZ41ZZZ Group Counseling for Substance Abuse Treatment, Behavioral (ICD-10-PCS; principal; 2017-06-18)
PROC: HZ2ZZZZ Detoxification Services for Substance Abuse Treatment (ICD-10-PCS; principal; 2017-06-18)
PROC: HZ31ZZZ Individual Counseling for Substance Abuse Treatment, Behavioral (ICD-10-PCS; 2017-06-19)
DX: F10.230 Alcohol dependence with withdrawal, uncomplicated (principal); K85.20 Alcohol induced acute pancreatitis without necrosis or infection; D69.6 Thrombocytopenia, unspecified; I45.81 Long QT syndrome; I15.9 Secondary hypertension, unspecified; K70.10 Alcoholic hepatitis without ascites; F17.210 Nicotine dependence, cigarettes, uncomplicated; G43.909 Migraine, unspecified, not intractable, without status migrainosus; Y90.8 Blood alcohol level of 240 mg/100 ml or more; E87.6 Hypokalemia; F41.9 Anxiety disorder, unspecified; Z81.1 Family history of alcohol abuse and dependence; F32.9 Major depressive disorder, single episode, unspecified; D72.819 Decreased white blood cell count, unspecified; Z82.49 Family history of ischemic heart disease and other diseases of the circulatory system
CPT/HCPCS: 36415; 70030-TC; 80307; 83735; 84100; 84703; 85025; 86580; 86592; 86705; 86803; 87340; 87806; 93005; 93307; G0480; J2405; J3411; Q0162; Q0163